=== PATIENT | male | born 1975 | race Hispanic/Latino ===

== ENCOUNTER 2018-11-14 20:32 | Emergency (ER) | payer SELFPAY | END 2018-11-14 21:05 | disposition home or self-care (01) | LOC: EDH 20:32 | DX: Z02.83 Encounter for blood-alcohol and blood-drug test (principal) ==

== ENCOUNTER 2024-07-23 09:16 | Emergency (ER) | payer OTHER ==
[~2024-07-23] VITALS: Ht 182.9 cm; Wt 147.4 kg
[2024-07-23] MEDS: teTANUS/diphthERIA TOXOID [ADULT] 0.5 ML VIAL IM ONE (10:54)
[2024-07-23 11:16] LABS: HIV 1&2 ANTIBODY Non-Reactive (Negative); HIV-1 p24 Antigen Non-Reactive (Negative)
[2024-07-23] MEDS ORDERED: EMTR1TAB11 PO (11:26)
[2024-07-23 11:38] VITALS: BP 119/81; PULSE 85; RESP 18; TEMP 98.6; O2SAT 95
[2024-07-24 12:26] LABS: HEPATITIS A IGM ANTIBODY Non-Reactive (Nonreactive); HEPATITIS B CORE IGM ANTIBODY Non-Reactive (Negative); HEPATITIS B SURFACE ANTIGEN Non-Reactive (Nonreactive); HEPATITIS C ANTIBODY Non-Reactive (Nonreactive)
== END 2024-07-23 11:39 | disposition home or self-care (01) ==
LOC: EDH 09:16
DX: S69.82XA Other specified injuries of left wrist, hand and finger(s), initial encounter (principal); E11.9 Type 2 diabetes mellitus without complications; E78.00 Pure hypercholesterolemia, unspecified; I10 Essential (primary) hypertension; W46.0XXA Contact with hypodermic needle, initial encounter; Y93.89 Activity, other specified; Y92.89 Other specified places as the place of occurrence of the external cause; Y99.0 Civilian activity done for income or pay
CPT/HCPCS: 36415; 80074; 86701; 87390; 90471; 90714

== ENCOUNTER → 2025-07-28 | Emergency (ER) | payer OTHER ==
[~2025-07-28] VITALS: Ht 182.9 cm; Wt 145.6 kg
[~2025-07-28] MED LIST: EMTR1TAB20 PO
--- NOTE | 2025-07-28 16:23 | EKG ---
[facility] Test Date: 2025-07-28 Test Time: 16:01:39 Pat Name: BRITTANI WILDER Department: ED Room: Gender: M Rnp: [id number] : 1975 Requested By: AMELIA DURÁN Order Number: [id number] Reading MD: Jacqueline Davey Measurements Intervals [place] Rate: 98 P: 35 UT: 207 QRS: -45 QRSD: 96 T: 57 QT: 329 QTc: 419 Interpretive Statements Sinus rhythm Prolonged UT interval Probable left atrial enlargement Inferior infarct, old Consider anterior infarct, with poor R wave progression No previous ECG available for comparison Electronically Signed On 07-29-2025 12:29:17 INVESTIGATION OFFICER by Jacqueline Davey Please click the below link to view image of tracing.
[2025-07-28 16:41] LABS: APPEARANCE,URINE CLEAR (CLEAR); GLUCOSE, URINE (UA) NEGATIVE (NEGATIVE); LEUKOCYTE ESTERASE ,URINE NEGATIVE Leu/uL (NEGATIVE); NITRATE,URINE NEGATIVE (NEGATIVE); OCCULT BLOOD,URINE NEGATIVE (NEGATIVE)
[2025-07-28 16:42] LABS: ADD UA MICROSCOPIC NO
[2025-07-28 16:52] LABS: IMMATURE GRANULOCYTE ABSOLUTE 0.05 K/uL (0-1); NUCLEATED RED BLOOD CELLS 0.0 % (0.0-0.19); PLATELET COUNT (AUTO) 184 K/uL (130-400); RED BLOOD CELL COUNT(AUTO) 5.86 MIL/uL (4.50-6.20); RED CELL DISTRIBUTION WIDTH 14.1 % (11.0-15.5); WHITE BLOOD COUNT (AUTO) 11.4 K/uL (4.8-10.8)
--- NOTE | 2025-07-28 16:57 | HMCIMG ---
EXAM: CR Chest, 1 View. CLINICAL HISTORY: cp COMPARISON: None provided. FINDINGS: LUNGS: The lungs show no infiltrate or other acute finding. PLEURAL SPACES: No pleural effusion or pneumothorax. MEDIASTINUM: Cardiac size and mediastinal contours within normal limits. BONES: No aggressive appearing osseous lesion seen. IMPRESSION: No acute cardiopulmonary pathology is evident. /[place]
[2025-07-28 17:01] LABS: CREATININE 0.7 mg/dL (0.5-1.3); GLOMERULAR FILTR. RATE CALC 112.0 mL/min (>90); GLUCOSE,RANDOM 111.0 mg/dL (70-105); SODIUM SERUM 137.0 mmol/L (136-145); UREA NITROGEN, BLOOD 12.0 mg/dL (7-18)
[2025-07-28 17:04] LABS: INR 1.01 (0.85-1.15)
[2025-07-28 17:06] LABS: CREATINE KINASE, TOTAL 58.0 U/L (21-232)
--- NOTE | 2025-07-28 17:18 | ERN ---
General Chief Complaint: Chest Pain Stated Complaint: CP Time Seen by MD: 16:09 Source: patient History of Present Illness Initial Comments Patient is a 50-year-old male chest pressure chest per patient he has been pressure in the right sided chest the later in the midsternal area. 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 HEAD/FACE: No signs of trauma. EENT: No eye pain, no blurred vision, no tearing, no double vision, no ear pain, no ear discharge, no nose pain, no nasal congestion, no throat pain, no throat swelling, no mouth pain. RESPIRATORY: No cough, no orthopnea, no SOB, no stridor, no wheezing. CARDIOVASCULAR: chest pain, no edema, no palpitations, no syncope. GASTROINTESTINAL/ABDOMINAL: No abdominal pain, no constipation, no diarrhea, no nausea, no vomiting. GENITOURINARY: No abnormal discharge, no dysuria, no frequent urination, no he maturia. No complaints of pain in the genitals. MUSCULOSKELETAL: No back pain, no gout, no joint pain, no joint swelling, no m uscle pain, no muscle stiffness, no neck pain. INTEGUMENTARY: No change in color, no change in hair/nails, no dryness, no lesi on, no lumps, no rash. NEUROLOGICAL/PSYCH: No anxiety, not depressed, no emotional problem, no headache, no numbness, no pre-existing deficit, no history of seizures, no tremors, no weakness. HEMATOLOGIC/LYMPHATIC: Not anemic, no history of blood clots, no apparent bleeding, no bruising, glands not swollen. All Systems Negative, Except as Noted. Physical Exam Physical Exam Dictation VITAL SIGNS: Reviewed. GENERAL APPEARANCE: Alert, oriented x3, no acute distress, obese. HEAD AND FACE: Non-traumatic. EYES: PERRL, pink conjunctivas, eyelid no trauma, anterior chamber clear. EARS: Pinnas intact and no signs of trauma or erythema. Ear canals clear and no discharge. TMs no erythema. NOSE: No discharge, no bleeding. OROPHARYNX: Mouth normal, teeth no caries, tongue pink. Pharynx clear, no erythema. Tonsils no exudates, no abscesses noted. Mucous membrane moist. NECK: Supple, non-tender, no thyromegaly, no masses, no JVD, no bruits. BREAST: Deferred. CHEST: No tenderness, no crepitus, no paradoxical movement, no retractions. LUNGS: Clear, well-ventilated, symmetric, no rales, no wheezing, no rhonchi, no stridor, good breath sounds bilaterally. HEART: Regular rate, regular rhythm, no murmur, no gallops. VASCULAR: No peripheral edema. ABDOMEN: Soft, positive bowel sounds, nondistended, no guarding, nontender, no rebound, no masses no hepatomegaly, no splenomegaly, no Devlin's sign, no hernias. RECTAL: Deferred. GENITAL: Deferred. NEUROLOGICAL: Normal speech, gross motor function intact, gross sensory function intact. MUSCULOSKELETAL: Neck nontender, full range of motion, back nontender, full range of motion. EXTREMITIES: Nontender, full range of motion. SKIN: Color pink, dry, no turgor, no rash, no lacerations, no abrasions, no contusions. LYMPHATICS: Deferred. Results Laboratory and Microbiology Lab and Micro Result Laboratory Tests Test 07/28/25 16:17 07/28/25 16:41 07/28/25 17:49 Urine Color LIGHT-YELLOW (YELLOW) Urine Appearance CLEAR (CLEAR) Urine pH 6.5 (5.0-8.0) Urine Specific [place] 1.012 (1.001-1.031) Urine Protein NEGATIVE mg/dL (NEGATIVE) Urine Glucose (UA) NEGATIVE mg/dL (NEGATIVE) Urine Ketones NEGATIVE mg/dL (NEGATIVE) Urine Occult Blood NEGATIVE (NEGATIVE) Urine Nitrate NEGATIVE (NEGATIVE) Urine Bilirubin NEGATIVE mg/dL (NEGATIVE) Urine Urobilinogen 0.2 mg/dL (0.2-1.0) Urine Leukocyte Esterase NEGATIVE Hanh/uL White Blood Count 11.4 K/uL (4.8-10.8) H Red Blood Count 5.86 MIL/uL (4.50-6.20) Hemoglobin 17.1 g/dL (14.0-18.0) Hematocrit 52.1 % (42-54) Mean Corpuscular Volume 88.9 fL (79-99) Mean Corpuscular Hemoglobin 29.2 pg (27.0-33.0) Mean Corpuscular Hemoglobin Concent 32.8 g/dL (32.0-36.0) Red Cell Distribution Width 14.1 % (11.0-15.5) Platelet Count 184 K/uL (130-400) Mean Platelet Volume 10.1 fL (7.5-10.5) Immature Granulocyte % (Auto) 0.4 % (0-1) Neutrophils (%) (Auto) 71.9 % (40.0-77.0) Lymphocytes (%) (Auto) 16.6 % (21.0-51.0) L Monocytes (%) (Auto) 6.6 % (3.0-13.0) Eosinophils (%) (Auto) 4.0 % (0.0-8.0) Basophils (%) (Auto) 0.5 % (0.0-5.0) Neutrophils # (Auto) 8.2 K/uL (1.8-7.7) H Lymphocytes # (Auto) 1.9 K/uL (1.0-4.8) Monocytes # (Auto) 0.8 K/uL (0.1-1.0) Eosinophils # (Auto) 0.46 K/uL (0.00-0.70) Basophils # (Auto) 0.06 K/uL (0.00-0.20) Absolute Immature Granulocyte (auto 0.05 K/uL (0-1) Nucleated Red Blood Cells 0.0 % (0.0-0.19) Prothrombin Time 10.7 SEC (9.6-11.6) Prothromb Time International Ratio 1.01 (0.85-1.15) Activated Partial Thromboplast Time 29.7 SEC (26.3-35.5) Sodium Level 137 mmol/L (136-145) Potassium Level 3.8 mmol/L (3.5-5.1) Chloride Level 99 mmol/L (101-111) L Carbon Dioxide Level 34 mmol/L (21-32) H Blood Urea Nitrogen 12 mg/dL (7-18) Creatinine 0.7 mg/dL (0.5-1.3) Glomerular Filtration Rate Calc 112 mL/min (>90) Random Glucose 111 mg/dL (70-105) H Total Calcium 9.1 mg/dL (8.5-10.1) Magnesium Level 1.90 mg/dL (1.80-2.40) Total Creatine Kinase 58 U/L (21-232) Troponin I High Sensitivity 5 ng/L (4-75) 4 ng/L (4-75) Labs Reviewed?: Yes EKG/XRAY/US/CT/MRI EKG Comment 07/28/2025 time 4:01 p.m. Ventricular rate [address] wave elevation or depression X-RAY Comment IMAGING REPORT Signed PATIENT: BRITTANI WILDER JR MR#: [id number] : 1975 SEX: M AGE: 50 LOCATION: [facility] ORDER 10 STATUS: [facility] ER REPORT#: [id number] SERVICE 09 REASON: cp ORDERING PHYSICIAN: AMELIA DURÁN MD PROCEDURE: CXR1VW - CHEST 1VW EXAM: CR Chest, 1 View. CLINICAL HISTORY: cp COMPARISON: None provided. FINDINGS: LUNGS: The lungs show no infiltrate or other acute finding. PLEURAL SPACES: No pleural effusion or pneumothorax. MEDIASTINUM: Cardiac size and mediastinal contours within normal limits. BONES: No aggressive appearing osseous lesion seen. IMPRESSION: No acute cardiopulmonary pathology is evident. /[place] DICTATED BY: IVONNE IBRAHIM Jr., MD DATE: 07/28/251756 ELECTRONICALLY SIGNED BY: IVONNE IBRAHIM Jr., MD DATE: 07/28/251756 [facility] MDM: DIFFERENTIAL DIAGNOSIS: CHEST PAIN, ACS, NSTEMI, STEMI, RATIONALE: TESTS CONSIDERED AND ORDERED SECONDARY TO SHARED DECISION MAKING INC LUDE: PREVIOUS OUTSIDE RECORDS REVIEWED: OLD ER VISITS. RISK OF COMPLICATION AND/OR MORBIDITY OR MORTALITY OF PATIENT MANAGEMENT: NONE MEDICATIONS-PER MEDICATION RECONCILIATION NEED FOR HOSPITALIZATION: PATIENT DOES NOT MEET CRITERIA FOR HOSPITALIZATION. NEED FOR EMERGENCY MAJOR/MINOR SURGERY: NO THERE ARE NO SOCIAL CONCERNS WITH THIS PATIENT. PATIENT IS A 50 Y/O MALE COMING IN TO BE EVALUATED FOR CHEST PRESSURE. UPON EVALUATION PATIENT STATED THAT HAS PRESSURE HAD IMPROVED. CARDIAC WORKUP NEGATIVE FOR ANY ACUTE FINDINGS. CARDIAC ENZYMES X2 NO ACUTE FINDINGS. PATIENT WILL BE DISCHARGED IN STABLE CONDITION WITH A DIAGNOSIS OF GERD GASTRITIS. I DID ADVISED HIM APPROPRIATE FOLLOW UP WITH PCP HE HAD PATIENT ALSO DISCLOSE THAT HE HAS A PENDING STRESS TEST TO BE PERFORMED BY [employer] PROCESSING TECHNICIAN. I ADVISED HIM TO CONTINUE TAKING HIS ASPIRIN TO FOLLOW UP ACCORDINGLY. VITAL SIGNS WITHIN NORMAL LIMITS. THROUGHOUT ER VISIT PATIENT STATES HIS PAIN HAS SUBSIDED. ED Course Orders Procedure Category Date Status Time Cbc With Differential LAB 07/28/25 Complete 16:10 Prothrombin Time With LAB 07/28/25 Complete INR 16:10 Chest 1vw RAD 07/28/25 Resulted 16:10 12 Lead Ekg Tracing- EKG 07/28/25 Complete Technical 16:10 Magnesium LAB 07/28/25 Complete 16:10 Creatine Kinase, Total LAB 07/28/25 Complete 16:10 Troponin I High LAB 07/28/25 Complete Sensitivity 16:10 Urinalysis Profile LAB 07/28/25 Complete 16:10 Partial LAB 07/28/25 Complete Thromboplastin Time 16:10 Basic Metabolic Panel LAB 07/28/25 Complete 16:10 Troponin I High LAB 07/28/25 Complete Sensitivity 17:15 Vital Signs Date Time Temp Pulse Resp B/P (MAP) Pulse Ox O2 Delivery O2 Flow Rate FiO2 07/28/25 16:08 97.5 88 16 162/100 98 Room Air 0 DX & DISP Disposition: Discharge Departure Impression: Primary Impression: GERD (gastroesophageal reflux disease) Additional Impression: Gastritis Condition: Stable Additional Instructions: YOU HAVE BEEN REVIEWED IN THE EMERGENCY DEPARTMENT AT [facility] AFTER PRESENTING WITH CHEST PAIN. AFTER CONSIDERING YOUR HISTORY, YOUR RISK FACTORS, YOUR EKG AND YOUR BLOOD TEST TROPONINS, HAVE BEEN FOUND TO BE AT VERY LOW RISK LESS THAN (1 IN 100) OF HAVING A MAJOR ADVERSE CARDIAC EVENT (LIKE HEART ATTACK) IN THE NEAR FUTURE. IN THE " LOW RISK" GROUP, THE RISKS OF DOING FURTHER TESTS AND TREATMENT THE INPATIENT OUTWEIGHS THE BENEFITS. IN MANY PATIENTS IN THE LOW RISK GROUP FOR THE TEST OF ANY SORT OR UNNECESSARY, HOWEVER HE SHOULD DISCUSS THIS FURTHER WITH HIS GENERAL PRACTITIONER WHO WILL UNDERSTAND THE MEDICAL AND PERSONAL BACKGROUNDS BETTER. BECAUSE WE HAVE NEVER DECLARED YOU" NO RISK" WE WOULD SUGGEST. 1 RETURNING FOR MEDICAL REVIEW IF YOU HAVE FURTHER EPISODES OF CHEST PAIN/ARM PAIN OR OTHER CONCERNING SYMPTOMS LIKE DIZZINESS, COLLAPSE, PALPITATIONS OR SHORTNESS OF BREATH. 2. FOLLOWING UP WITH YOUR LOCAL DOCTOR WHO WILL CONSIDER THE NEED FOR FURTHER TESTING AND WILL ALSO ENSURE THAT ANY MODIFIABLE RISK FACTORS YOU MAY HAVE FOR HEART DISEASE ARE OPTIMALLY MANAGED. PATIENT WILL BE DISCHARGED IN STABLE CONDITION AT THE MOMENT DISCHARGE PATIENT STATES , NO CHEST PAIN Referrals: SELF,REFERRAL (PCP) COLUMBA BRITO MD, LUIS A MD Time of Disposition: 18:26 AMELIA DURÁN MD Jul 28, 2025 17:18
--- NOTE | 2025-07-28 17:22 | NUR ---
REPORT RECIEVED FROM [facility]. PATIENT CARE ASSUMED AT THIS TIME.
[2025-07-28 18:59] VITALS: BP 120/82; PULSE 82; RESP 16; TEMP 97.5; O2SAT 98
== END ==
LOC: EDH 16:07
DX: K21.9 Gastro-esophageal reflux disease without esophagitis (principal); K29.70 Gastritis, unspecified, without bleeding; E11.9 Type 2 diabetes mellitus without complications; E78.00 Pure hypercholesterolemia, unspecified; I10 Essential (primary) hypertension; Z79.624 Long term (current) use of inhibitors of nucleotide synthesis
CPT/HCPCS: 36415; 71045; 80048; 81003; 82550; 83735; 84484; 85025; 85610; 85730; 93005; 99285